=== PATIENT | female | born 2000 | race Caucasian/White ===

== ENCOUNTER 2023-07-31 09:51 | Emergency (ER) | payer BC ==
[~2023-07-31] VITALS: Ht 157.5 cm; Wt 77.6 kg
[2023-07-31 09:51] VITALS: BP_SYST 163; PULSE 94; RESP 18; TEMP 98.2; O2SAT 98
[2023-07-31 10:19] VITALS: BP_SYST 163; PULSE 94; RESP 18; TEMP 98.2; O2SAT 98
== END 2023-07-31 10:14 | disposition left against medical advice (07) ==
LOC: SED 09:51
DX: R56.9 Unspecified convulsions (principal)
CPT/HCPCS: 99283